=== PATIENT | female | born 1970 | race African-American/Black ===

== ENCOUNTER 2018-04-22 10:43 | Day surgery (SDC) | payer OTHER ==
--- OUTSIDE RECORDS SUMMARY | 2018-04-22 10:46 | XMS REPORT ---
:1970 Author Organization [facility] Address [address] [place] [address] Care Team Providers Name Role Phone DR JOSUE ROMAN Unavailable Unavailable Problems This patient has no known problems. Allergies, Adverse Reactions, Alerts This patient has no known allergies or adverse reactions. Medications This patient has no known medications. Encounters Start End Encounter Admission Attending Care Care Encounter Date/Time Date/Time Type Type Clinicians Facility Department ID 2018-02-27 2018-03-04 [place] [facility] [place] [id number] 12:55:00 11:14:00 Results Test Description Test Time Test Comments Text Results Atomic Results Result Comments BLOOD CULTURE 2018-03-05 07:50:00 Test Item Value Reference Range Comments Culture Observations (test code=COB1) NO GROWTH AFTER 5 DAYS CLOSTRIDIUM DIFFICILE [id number] 11:04:00 Test Item Value Reference Range Comments Direct Exam (test code=DE1) NO CLOSTRIDIUM DIFFICILE TOXIN A/B DETECTED [id number] 06:10:00 Test Item Value Reference Range Comments CREATININE (test code=03E) 0.8 mg/dL 0.4-1.1 GLUCOMETER GLUCOSE- LAB USE [id number] 05:44:00 Test Item Value Reference Range Comments GLUCOMETER (test code=GMG) 215 mg/dL 70-100 CLEANED METERMeter ID: [id number]: [id number] LETECIA FUNK GLUCOMETER GLUCOSE- LAB USE [id number] 19:56:00 Test Item Value Reference Range Comments GLUCOMETER (test code=GMG) 218 mg/dL 70-100 Meter ID: [id number]: [id number] LETECIA FUNK GLUCOMETER GLUCOSE- LAB USE [id number] 16:23:00 Test Item Value Reference Range Comments GLUCOMETER (test code=GMG) 255 mg/dL 70-100 Meter ID: [id number]: 5935 YUAN MICHAELLE GLUCOMETER GLUCOSE- LAB USE [id number] 12:16:00 Test Item Value Reference Range Comments GLUCOMETER (test code=GMG) 235 mg/dL 70-100 Meter ID: [id number]: [id number] YUAN MICHAELLE GLUCOMETER GLUCOSE- LAB USE [id number] 06:25:00 Test Item Value Reference Range Comments GLUCOMETER (test code=GMG) 250 mg/dL 70-100 CLEANED METERMeter ID: [id number]: [id number] ALIYAH FUNK GLUCOMETER GLUCOSE- LAB USE [id number] 20:49:00 Test Item Value Reference Range Comments GLUCOMETER (test code=GMG) 265 mg/dL 70-100 CLEANED METERMeter ID: [id number]: [id number] ALIYAH FUNK GLUCOMETER GLUCOSE- LAB USE [id number] 16:16:00 Test Item Value Reference Range Comments GLUCOMETER (test code=GMG) 251 mg/dL 70-100 CLEANED METERMeter ID: [id number]: 9086 ALVERTO CORREAEZ GLUCOMETER GLUCOSE- LAB USE [id number] 11:15:00 Test Item Value Reference Range Comments GLUCOMETER (test code=GMG) 262 mg/dL 70-100 CLEANED METERMeter ID: [id number]: 9086 ALVERTO CORREAEZ BLOOD [id number] 08:10:00 Test Item Value Reference Range Comments Culture Observations POSITIVE BLOOD CULTURE (test code=COB1) Isolate 1 (test Coagulase negative 1 OF 4 BOTTLESIF code=ISO1) staphylococcus SUSCEPTIBILITY NEEDED, PLEASE NOTIFY MICRO WITHIN 24 HOURS Isolate 2 (test Coagulase negative 1 OF 4 BOTTLESIF code=ISO2) staphylococcus #2 SUSCEPTIBILITY NEEDED, PLEASE NOTIFY MICRO WITHIN 24 HOURS GLUCOMETER GLUCOSE- LAB USE [id number] 05:58:00 Test Item Value Reference Range Comments GLUCOMETER (test code=GMG) 325 mg/dL 70-100 CLEANED METERMeter ID: [id number]: [id number] BEAU SCHROEDER VANCOMYCIN [id number] 04:54:00 Test Item Value Reference Range Comments VANC TROGH (test code=VANCT) 17.9 ug/dL 10.0-20.0 COMPREHENSIVE METABOLIC [id number] 04:49:00 Test Item Value Reference Range Comments GLUCOSE (test code=06D) 296 mg/dL 75-100 SODIUM (test code=01A) 138 mmol/L 136-145 POTASSIUM (test code=01B) 3.8 mmol/L 3.6-5.1 CHLORIDE (test code=04A) 105 mmol/L 98-107 CO2 (test code=02A) 25 mmol/L 22-32 ANION GAP (test code=ANG) 11.8 mmol/L BUN (test code=05D) 9 mg/dL 7-18 CREATININE (test code=03E) 0.9 mg/dL 0.4-1.1 BUN/CREA (test code=BCR) 10 12-20 CALCIUM (test code=09D) 8.4 mg/dL 8.3-9.5 BILI TOTAL (test code=11A) 0.6 mg/dL 0.2-1.0 PROTEIN (test code=07D) 7.6 g/dL 6.4-8.2 ALBUMIN (test code=08D) 2.6 g/dL 3.5-4.8 GLOBULIN (test code=GLB) 5.0 g/dL 1.5-3.8 ALB/GLOB (test code=AGRR) 0.5 1.0-2.6 ALK PHOS (test code=35A) 127 IU/L 42-121 AST (test code=30A) 32 IU/L <=42 ALT (test code=31A) 40 IU/L <=78 CBC (INCLUDES AUTOMATED DIFFERENTIAL)2018-03-02 04:40:00 Test Item Value Reference Range Comments WBC (test code=WBC) 10.7 10\S\3/uL 4.5-11.0 RBC (test code=RBC) 3.80 10\S\6/uL 4.20-5.60 HGB (test code=HBG) 10.9 g/dL 12.0-15.5 HCT (test code=HCT) 34.4 % 35.0-44.0 MCV (test code=MCV) 90.5 fL 81.0-99.0 MCH (test code=MCH) 28.7 pg 27.0-31.0 MCHC (test code=MCHC) 31.7 g/dL 32.0-36.0 RDW (test code=RDW) 14.4 % 11.5-14.5 PLT (test code=PLT) 300 10\S\3/uL 130-400 MPV (test code=MPV) 10.7 fL 9.4-12.4 NEUTROP # (test code=NE#) 6.3 10\S\3/uL 1.6-8.0 LYMPH # (test code=LY#) 3.1 10\S\3/uL 1.1-3.5 MONOCYTE # (test code=MO#) 1.0 10\S\3/uL 0.0-1.1 EOSINOPH # (test code=EO#) 0.3 10\S\3/uL 0.0-0.7 BASOPHIL # (test code=BA#) 0.1 10\S\3/uL 0.0-0.3 IG # (test code=IG#) 0.10 10\S\3/uL 0.00-0.06 NRBC # (test code=NRBC#) 0.00 10\S\3/uL 0.00-0.01 NEUTROPH % (test code=NE%) 58.5 % 35.0-73.0 LYMPH % (test code=LY%) 28.5 % 20.0-55.0 MONO % (test code=MO%) 9.0 % 2.5-10.0 EOSINOPH % (test code=EO%) 2.6 % 0.0-5.0 BASOPHIL % (test code=BA%) 0.5 % 0.0-2.0 IG % (test code=IG%) 0.9 % 0.0-0.8 NRBC% (test code=NRBC%) 0.0 % 0.0-0.2 MANDIFF (test code=MDIFF) NO NO RBC MORPH (test code=RBCMOR) NORMAL GLUCOMETER GLUCOSE- LAB USE [id number] 19:35:00 Test Item Value Reference Range Comments GLUCOMETER (test code=GMG) 323 mg/dL 70-100 CLEANED METERMeter ID: [id number]: 5169 BEAU SCHROEDER GLUCOMETER GLUCOSE- LAB USE [id number] 16:06:00 Test Item Value Reference Range Comments GLUCOMETER (test code=GMG) 319 mg/dL 70-100 CLEANED METERMeter ID: [id number]: [id number] GRACIA WHITE GLUCOMETER GLUCOSE- LAB USE [id number] 11:46:00 Test Item Value Reference Range Comments GLUCOMETER (test code=GMG) 309 mg/dL 70-100 CLEANED METERMeter ID: [id number]: 5837 GRACIA WHITE URINE [id number] 08:45:00 Test Item Value Reference Range Comments Isolate 1 (test code=ISO1) Escherichia coli ampicillin (test code=am) ug/mL ampicillin/sulbactam (test code=ams) ug/mL piperacillin/tazobactam (test code=tzp) ug/mL cefazolin (test code=cz) ug/mL ceftazidime (test code=mario) ug/mL ceftriaxone1 (test code=ctr) ug/mL cefepime (test code=fep) ug/mL aztreonam (test code=azm) ug/mL ertapenem (test code=etp) ug/mL meropenem (test code=mem) ug/mL gentamicin (test code=gm) ug/mL tobramycin (test code=tob) ug/mL levofloxacin (test code=lev) ug/mL nitrofurantoin (test code=ftn) ug/mL trimethoprim/sulfamethoxazole (test ug/mL code=sxt) GLUCOMETER GLUCOSE- LAB USE [id number] 06:09:00 Test Item Value Reference Range Comments GLUCOMETER (test code=GMG) 325 mg/dL 70-100 CLEANED METERMeter ID: [id number]: 5169 BEAU ELDA GLUCOMETER GLUCOSE- LAB USE [id number] 19:21:00 Test Item Value Reference Range Comments GLUCOMETER (test code=GMG) 326 mg/dL 70-100 CLEANED METERMeter ID: [id number]: 5169 BEAU ELDA GLUCOMETER GLUCOSE- LAB USE [id number] 12:15:00 Test Item Value Reference Range Comments GLUCOMETER (test code=GMG) 298 mg/dL 70-100 Meter ID: [id number]: 9277 MINOR ANN GLUCOMETER GLUCOSE- LAB USE [id number] 08:07:00 Test Item Value Reference Range Comments GLUCOMETER (test code=GMG) 271 mg/dL 70-100 Meter ID: [id number]: 9277 MINOR ANN BASIC METABOLIC [id number] 06:20:00 Test Item Value Reference Range Comments GLUCOSE (test code=06D) 265 mg/dL 75-100 SODIUM (test code=01A) 137 mmol/L 136-145 POTASSIUM (test code=01B) 3.9 mmol/L 3.6-5.1 CHLORIDE (test code=04A) 106 mmol/L 98-107 CO2 (test code=02A) 23 mmol/L 22-32 ANION GAP (test code=ANG) 11.9 mmol/L BUN (test code=05D) 7 mg/dL 7-18 CREATININE (test code=03E) 0.7 mg/dL 0.4-1.1 BUN/CREA (test code=BCR) 10 12-20 CALCIUM (test code=09D) 7.9 mg/dL 8.3-9.5 CBC (INCLUDES AUTOMATED DIFFERENTIAL)2018-02-28 06:10:00 Test Item Value Reference Range Comments WBC (test code=WBC) 13.0 10\S\3/uL 4.5-11.0 RBC (test code=RBC) 3.85 10\S\6/uL 4.20-5.60 HGB (test code=HBG) 11.1 g/dL 12.0-15.5 HCT (test code=HCT) 35.1 % 35.0-44.0 MCV (test code=MCV) 91.2 fL 81.0-99.0 MCH (test code=MCH) 28.8 pg 27.0-31.0 MCHC (test code=MCHC) 31.6 g/dL 32.0-36.0 RDW (test code=RDW) 14.6 % 11.5-14.5 PLT (test code=PLT) 265 10\S\3/uL 130-400 MPV (test code=MPV) 11.0 fL 9.4-12.4 NEUTROP # (test code=NE#) 9.4 10\S\3/uL 1.6-8.0 LYMPH # (test code=LY#) 1.9 10\S\3/uL 1.1-3.5 MONOCYTE # (test code=MO#) 1.3 10\S\3/uL 0.0-1.1 EOSINOPH # (test code=EO#) 0.1 10\S\3/uL 0.0-0.7 BASOPHIL # (test code=BA#) 0.1 10\S\3/uL 0.0-0.3 IG # (test code=IG#) 0.08 10\S\3/uL 0.00-0.06 NRBC # (test code=NRBC#) 0.00 10\S\3/uL 0.00-0.01 NEUTROPH % (test code=NE%) 72.9 % 35.0-73.0 LYMPH % (test code=LY%) 14.9 % 20.0-55.0 MONO % (test code=MO%) 10.1 % 2.5-10.0 EOSINOPH % (test code=EO%) 1.1 % 0.0-5.0 BASOPHIL % (test code=BA%) 0.4 % 0.0-2.0 IG % (test code=IG%) 0.6 % 0.0-0.8 NRBC% (test code=NRBC%) 0.0 % 0.0-0.2 MANDIFF (test code=MDIFF) NO NO RBC MORPH (test code=RBCMOR) NORMAL LACTIC [id number] 21:16:00 Test Item Value Reference Range Comments LACTIC ACD (test code=LA) 1.3 mmol/L 0.4-2.0 BASIC METABOLIC [id number] 21:13:00 Test Item Value Reference Range Comments GLUCOSE (test code=06D) 85 mg/dL 75-100 SODIUM (test code=01A) 139 mmol/L 136-145 POTASSIUM (test code=01B) 3.4 mmol/L 3.6-5.1 CHLORIDE (test code=04A) 107 mmol/L 98-107 CO2 (test code=02A) 26 mmol/L 22-32 ANION GAP (test code=ANG) 9.4 mmol/L BUN (test code=05D) 7 mg/dL 7-18 CREATININE (test code=03E) 0.7 mg/dL 0.4-1.1 BUN/CREA (test code=BCR) 10 12-20 CALCIUM (test code=09D) 8.2 mg/dL 8.3-9.5 CBC (INCLUDES AUTOMATED DIFFERENTIAL)2018-02-27 20:59:00 Test Item Value Reference Range Comments WBC (test code=WBC) 15.6 10\S\3/uL 4.5-11.0 RBC (test code=RBC) 4.10 10\S\6/uL 4.20-5.60 HGB (test code=HBG) 11.8 g/dL 12.0-15.5 HCT (test code=HCT) 36.8 % 35.0-44.0 MCV (test code=MCV) 89.8 fL 81.0-99.0 MCH (test code=MCH) 28.8 pg 27.0-31.0 MCHC (test code=MCHC) 32.1 g/dL 32.0-36.0 RDW (test code=RDW) 14.7 % 11.5-14.5 PLT (test code=PLT) 316 10\S\3/uL 130-400 MPV (test code=MPV) 11.0 fL 9.4-12.4 NEUTROP # (test code=NE#) 11.1 10\S\3/uL 1.6-8.0 LYMPH # (test code=LY#) 3.0 10\S\3/uL 1.1-3.5 MONOCYTE # (test code=MO#) 1.3 10\S\3/uL 0.0-1.1 EOSINOPH # (test code=EO#) 0.1 10\S\3/uL 0.0-0.7 BASOPHIL # (test code=BA#) 0.1 10\S\3/uL 0.0-0.3 IG # (test code=IG#) 0.11 10\S\3/uL 0.00-0.06 NRBC # (test code=NRBC#) 0.00 10\S\3/uL 0.00-0.01 NEUTROPH % (test code=NE%) 71.3 % 35.0-73.0 LYMPH % (test code=LY%) 18.9 % 20.0-55.0 MONO % (test code=MO%) 8.3 % 2.5-10.0 EOSINOPH % (test code=EO%) 0.4 % 0.0-5.0 BASOPHIL % (test code=BA%) 0.4 % 0.0-2.0 IG % (test code=IG%) 0.7 % 0.0-0.8 NRBC% (test code=NRBC%) 0.0 % 0.0-0.2 MANDIFF (test code=MDIFF) NO NO RBC MORPH (test code=RBCMOR) NORMAL U/S [id number] 19:36:08EXAMINATION: NON-TUNNELED CENTRAL VENOUS CATHETER PLACEMENT.LOCATION: D4.HISTORY: Sepsis without IV access.SEDATION: The patient did not require conscious sedation for the procedure.ANTIBIOTICS: None.Not indicated.TECHNIQUE: The risks, benefits, and alternatives were discussed and informedconsent was obtained. Prior to beginning the procedure, [place] Protocol wasused to confirm the patient's identity and planned procedure. Maximum sterilebarriers including cap, mask, hand hygiene, sterile gloves, sterile gown, largesterile drape and cutaneous antisepsis were used.The skin over the right internal jugular vein vein was sterilely prepped,draped, and infiltrated with lidocaine.Prior to the procedure, the target vessel was evaluated by ultrasound. Animage of the patent vessel was recorded and saved to PACS. After sterile prep,this vessel was accessed with a micropuncture needle using real-time ultrasoundguidance. A guidewire and catheter were then passed centrally. After dilating the tract,a triple lumen catheter was inserted over the guidewire. The catheter wasflushed and secured in place. A sterile dressing was applied. ESTIMATED BLOOD LOSS: Less than 30 milliliters.COMPLICATIONS: None.DISCHARGED TO: Procedure was performed at bedside.FINDINGS: Ultrasound demonstrates a patent right internal jugular vein.IMPRESSION: Successful non-tunneled triple lumen catheter placement via theright internal jugular vein.PLAN: The catheter is ready for immediate use. When treatment is completed,this catheter can be removed at the bedside according to standard hospitalprotocol.XR CENTRAL LINE [id number] 19:36 :08EXAMINATION: NON-TUNNELED CENTRAL VENOUS CATHETER PLACEMENT.LOCATION: D4.HISTORY: Sepsis without IV access.SEDATION: The patient did not require conscious sedation for the procedure.ANTIBIOTICS: None.Not indicated.TECHNIQUE: The risks, benefits, and alternatives were discussed and informedconsent was obtained. Prior to beginning the procedure, [place] Protocol wasused to confirm the patient's identity and planned procedure. Maximum sterilebarriers including cap, mask, hand hygiene, sterile gloves, sterile gown, largesterile drape and cutaneous antisepsis were used.The skin over the right internal jugular vein vein was sterilely prepped,draped, and infiltrated with lidocaine.Prior to the procedure, the target vessel was evaluated by ultrasound. Animage of the patent vessel was recorded and saved to PACS. After sterile prep,this vessel was accessed with a micropuncture needle using real-time ultrasoundguidance. A guidewire and catheter were then passed centrally. After dilating the tract,a triple lumen catheter was inserted over the guidewire. The catheter wasflushed and secured in place. A sterile dressing was applied. ESTIMATED BLOOD LOSS: Less than 30 milliliters.COMPLICATIONS: None.DISCHARGED TO: Procedure was performed at bedside.FINDINGS: Ultrasound demonstrates a patent right internal jugular vein.IMPRESSION: Successful non-tunneled triple lumen catheter placement via theright internal jugular vein.PLAN: The catheter is ready for immediate use. When treatment is completed,this catheter can be removed at the bedside according to standard hospitalprotocol.XR CENTRAL LINE [id number] 19:36 :08EXAMINATION: NON-TUNNELED CENTRAL VENOUS CATHETER PLACEMENT.LOCATION: D4.HISTORY: Sepsis without IV access.SEDATION: The patient did not require conscious sedation for the procedure.ANTIBIOTICS: None.Not indicated.TECHNIQUE: The risks, benefits, and alternatives were discussed and informedconsent was obtained. Prior to beginning the procedure, [place] Protocol wasused to confirm the patient's identity and planned procedure. Maximum sterilebarriers including cap, mask, hand hygiene, sterile gloves, sterile gown, largesterile drape and cutaneous antisepsis were used.The skin over the right internal jugular vein vein was sterilely prepped,draped, and infiltrated with lidocaine.Prior to the procedure, the target vessel was evaluated by ultrasound. Animage of the patent vessel was recorded and saved to PACS. After sterile prep,this vessel was accessed with a micropuncture needle using real-time ultrasoundguidance. A guidewire and catheter were then passed centrally. After dilating the tract,a triple lumen catheter was inserted over the guidewire. The catheter wasflushed and secured in place. A sterile dressing was applied. ESTIMATED BLOOD LOSS: Less than 30 milliliters.COMPLICATIONS: None.DISCHARGED TO: Procedure was performed at bedside.FINDINGS: Ultrasound demonstrates a patent right internal jugular vein.IMPRESSION: Successful non-tunneled triple lumen catheter placement via theright internal jugular vein.PLAN: The catheter is ready for immediate use. When treatment is completed,this catheter can be removed at the bedside according to standard hospitalprotocol.XR CHEST 1 [id number] 19:34:40EXAM: XR CHEST 1 VIEW.LOCATION: D4.HISTORY: [id number]: Systemic infection.COMPARISON: None.TECHNIQUE:Single AP view of the chest was obtained. FINDINGS:Right IJ line tip is in the distal SVC.The heart is normal in size. There is accentuation of the central pulmonaryvasculature, likely due to technique. Hazy opacities within the left lung baseare thought to be due to overlying breast tissue. No acute osseous anomaly isidentified.IMPRESSION:Right IJ line tip is in the distal SVC.URINALYSIS WITH [id number] 18:47:00 Test Item Value Reference Range Comments COLOR (test code=COLU) YELLOW YELLOW CLARITY (test code=CLA) SLT HAZY CLEAR GLUCOSE UR (test code=UA GLUCOSE) NEGATIVE NEGATIVE BILI UR (test code=BILE) NEGATIVE NEGATIVE KETONES UR (test code=JEANETTE) NEGATIVE NEGATIVE SP GRAVITY (test code=SPGR) 1.017 1.005-1.030 PH UR (test code=PH) 5.5 4.5-8.0 PROTEIN UR (test code=PU) TRACE NEGATIVE UROBIL UR (test code=UROQ) 0.2 EU/dL 0.2-1.0 NITRITE UR (test code=NITRITE) POSITIVE NEGATIVE BLOOD UR (test code=UA BLOOD) TRACE NEGATIVE LEUK ES UR (test code=LEUK) 1+ NEGATIVE WBC UR (test code=UWBC) 4 /HPF 0-5 RBC UR (test code=URBC) 0 /HPF 0-2 EPITH UR (test code=UEPC) FEW /LPF FEW BACTERIA UR (test code=UBACT) FEW /HPF NONE CAST UR (test code=CAST) /LPF NONE CRYSTAL UR (test code=CRYU) / LPF NONE MUCUS UR (test code=MUC) / HPF NONE AMORPH UR (test code=JOHNNY) FEW / HPF NONE TRICH UR (test code=UTRICH) /HPF NONE YEAST UR (test code=UY) /HPF NONE SPERM UR (test code=USPERM) /HPF NONE GLUCOMETER GLUCOSE- LAB USE [id number] 16:19:00 Test Item Value Reference Range Comments GLUCOMETER (test code=GMG) 52 mg/dL 70-100 Meter ID: [id number]: 5143 SANDEEP MARTINEZ
[2018-04-22] MEDS ORDERED: NA CHLORIDE 0.9% 1,000 ML ONE (10:58)
[2018-04-22] MEDS ORDERED: PROPOFOL 200 MG/20 ML VIAL IV ONE (13:01)
[2018-04-22] MEDS ORDERED: LIDOCAINE 1% MPF 5 ML VIAL ONE (13:01)
[2018-04-22] MEDS ORDERED: ALBUTEROL 2.5 MG/3 ML NEB SOL ONE (13:25)
--- NOTE | 2018-04-23 00:02 | OP ---
Surgeon: Jose Frias MD Procedure To Be Performed: Esophagogastroduodenoscopy. Indication For Procedure: Dysphagia. Plan For Anesthesia: Monitored anesthesia care. Complexity: High due to the patient being morbidly obese as well as having CHAYA plus it being a thera peutic procedure. Technique: After obtaining informed consent from the patient, explaining the risks and complications which include but are not limited to bleeding, infection, perforation, and anesthesia complication, the patient was placed in a supine to semi left lateral position, due to her weight could not be plac ed fully lateral, and sedation was given. Nasal trumpet was also inserted by Anesthesia to help with oxygenation. After the patient was sedated, the scope was inserted through the mouth and carefully guided up till the second portion of the duodenum. After the completion of examination and all diagn ostic and therapeutic maneuvers, the scope was withdrawn and procedure terminated in a safe manner. Findings: Esophagus: No gross lesion seen in the entire esophagus. However, there was appearance o f a mild stenosis in the distal portion. This was addressed at the end of the procedure with guidewi re assisted dilation with Savary dilators from 11 to 12.8 mm. Post-dilation views were normal. Also , esophageal biopsies were taken to rule out eosinophilic esophagitis. Stomach: Mild diffuse erythema seen in the body and antrum. Biopsies taken. Duodenum: The bulb and second portion appeared normal. Complications: None. Tolerance To Anesthesia: Excellent. Postoperative Diagnosis: Mild esophageal stenosis, status post dilation and gastritis. Plan: 1.Await pathology results. 2.Oral PPI, omeprazole 40 mg once a day. 3.Follow up in the GI clinic in 2 weeks. US/MODL Voice ID: [id number] Report ID: [id number]
== END 2018-04-22 14:05 | disposition home or self-care (01) ==
LOC: OR 10:43
PROVIDERS: ATTEND Internal Medicine Gastroenterology
PROC: 0DB68ZX Excision of Stomach, Via Natural or Artificial Opening Endoscopic, Diagnostic (ICD-10-PCS; 2018-04-22)
PROC: 0D758ZZ Dilation of Esophagus, Via Natural or Artificial Opening Endoscopic (ICD-10-PCS; principal; 2018-04-22 12:45)
DX: K22.2 Esophageal obstruction (principal); K20.8 Other esophagitis; K29.50 Unspecified chronic gastritis without bleeding; R12 Heartburn; G47.33 Obstructive sleep apnea (adult) (pediatric); E11.9 Type 2 diabetes mellitus without complications; I10 Essential (primary) hypertension; E66.9 Obesity, unspecified; E78.00 Pure hypercholesterolemia, unspecified; Z90.49 Acquired absence of other specified parts of digestive tract; Z80.0 Family history of malignant neoplasm of digestive organs; Z83.3 Family history of diabetes mellitus; Z82.49 Family history of ischemic heart disease and other diseases of the circulatory system
CPT/HCPCS: 82962; 88305; 88312; C1769; J7030